=== PATIENT | female | born 1985 | race Caucasian/White ===

== ENCOUNTER 2018-01-25 17:13 | Inpatient (IN) | payer BC ==
[2018-01-25] MEDS ORDERED: Terbutaline 1 MG/ML SDV SUBCUT PRN (17:26)
[2018-01-25] MEDS ORDERED: Carboprost Tromethamine 250 MCG/1 ML Amp IM PRN (17:29)
[2018-01-25] MEDS ORDERED: Methylergonovine 0.2 MG/1 ML Amp IM PRN (17:29)
[2018-01-25] MEDS ORDERED: Sodium Chloride 0.9% 10 ML Syringe FLUSH PRN (17:29)
[2018-01-25] MEDS ORDERED: Water For Irrigation,Sterile 1,000 ML Container IRR PRN (17:29)
[2018-01-25] MEDS ORDERED: Lidocaine 1% 50 ML MDV INJECT PRN (17:29)
[2018-01-25] MEDS ORDERED: Misoprostol 200 MCG Tab PO PRN (17:29)
[2018-01-25] MEDS ORDERED: Tranexamic Acid 1,000 MG in Sodium Chloride 0.9% 100 ML IV PRN (17:29)
[2018-01-25] MEDS ORDERED: Sodium Chloride 0.9% 2.5 ML Syringe FLUSH PRN (17:29)
[2018-01-25] MEDS ORDERED: Oxytocin/0.9 % Sodium Chloride 30 UNIT/500 ML BAG IV SCH ×2 (17:30)
[2018-01-25] MEDS: Lactated Ringers 1,000 ML IV SCH (17:45)
[2018-01-25] MEDS ORDERED: Misoprostol 25 MCG (1/4 of 100 MCG) Tab VAG SCH (18:00)
[2018-01-26] MEDS ORDERED: Misoprostol 25 MCG (1/4 of 100 MCG) Tab VAG PRN
[2018-01-26] MEDS: Butorphanol 1 MG/ML SDV IVPUSH PRN ×2 (03:58→06:05)
[2018-01-26] MEDS: Lactated Ringers 1,000 ML IV SCH (05:30)
[2018-01-26] MEDS ORDERED: Acetaminophen 500 MG Tab ONE (13:47)
[2018-01-26] MEDS ORDERED: Ibuprofen 800 MG Tab ONE (13:48)
[2018-01-26] MEDS ORDERED: oxyCODONE 5 MG Tab PO PRN (14:19)
[2018-01-26] MEDS ORDERED: Aluminum Hydroxide/Magnesium Hydroxide/Simethicone Susp 30 ML Cup PO PRN (14:19)
[2018-01-26] MEDS ORDERED: Witch Hazel Medicated Pads 40/Jar TOP PRN (14:19)
[2018-01-26] MEDS ORDERED: Acetaminophen 500 MG Tab PO PRN ×2 (14:19)
[2018-01-26] MEDS ORDERED: Ibuprofen 800 MG Tab PO PRN (14:19)
[2018-01-26] MEDS ORDERED: Ibuprofen 400 MG Tab PO PRN (14:19)
[2018-01-26] MEDS ORDERED: Bisacodyl 10 MG Supp RECTAL PRN (14:19)
[2018-01-26] MEDS ORDERED: Benzocaine/Menthol 20%-0.5% Spray 78 GM Cannister TOP PRN (14:19)
[2018-01-26] MEDS ORDERED: Docusate Sodium 100 MG Cap PO PRN (14:19)
[2018-01-26] MEDS ORDERED: Lanolin 100% Cream 7 GM Tube TOP PRN (14:19)
[2018-01-26] MEDS ORDERED: Ondansetron 4 MG/2 ML SDV IVPUSH PRN (14:19)
[2018-01-27 08:15] VITALS: BP 118/65
--- NOTE | 2018-01-27 09:13 | PCM.PNPP ---
- General Info Date of Service: 01/27/18 Subjective Update: Patient is doing well, ambulating/voiding/lochia is minimal. She is tolerating regular diet. Denies headache or visual changes. is going well. - General Info Date of Service: 01/27/18 - Patient Data Vital Signs - Most Recent: Last Vital Signs Temp 36.5 C 01/27/18 08:00 Pulse 72 01/27/18 08:00 Resp 16 01/27/18 08:00 BP 118/65 01/27/18 08:00 Pulse Ox 97 01/27/18 08:00 Weight - Most Recent: 81.647 kg Lab Results - Last 24 Hours: Laboratory Results - last 24 hr 01/26/18 01/27/18 Range/Units 14:19 04:59 Hgb 11.9 L (12.0-16.0) g/dL Hct 34.3 L (36.0-46.0) % Cord ABG pH 7.103 L (7.18-7.38) Cord ABG Base Excess -11 L (-10--2) Cord VBG pH 7.195 L (7.25-7.45) Cord VBG Base Excess -10 (-10--2) Med Orders - Current: Current Medications Acetaminophen (Tylenol Extra Strength) 500 mg PO Q4H PRN PRN Reason: Pain Acetaminophen (Tylenol Extra Strength) 1,000 mg PO Q4H PRN PRN Reason: Pain Al Hydroxide/Mg Hydroxide (Mag-Al Plus) 30 ml PO Q8H PRN PRN Reason: Heartburn Benzocaine/Menthol (Dermoplast Pain Relief 20%-0.5% Penn) 78 gm TOP ASDIRECTED PRN PRN Reason: Perineal Comfort Measure Bisacodyl (Dulcolax) 10 mg RECTAL .ONCE PRN PRN Reason: Constipation Butorphanol Tartrate (Stadol) 1 mg IVPUSH Q1H PRN PRN Reason: Pain Last Admin: 01/26/18 06:05 Dose: 1 mg Carboprost Tromethamine (Hemabate Ds) 250 mcg IM ASDIRECTED PRN PRN Reason: Post Hemorrhage Docusate Sodium (Colace) 100 mg PO BID PRN PRN Reason: Constipation Emollient Ointment (Lansinoh Hpa) 0 gm TOP ASDIRECTED PRN PRN Reason: Sore Nipples Tranexamic Acid 1,000 mg/ (Sodium Chloride) 110 mls @ 600 mls/hr IV ONETIME PRN PRN Reason: Bleeding Oxytocin/Sodium Chloride (Oxytocin 30 Unit/500 Ml-Ns) 30 unit in 500 mls @ 2 mls/hr IV TITRATE RAVEN; 2 MUNITS/MIN PRN Reason: Protocol Lactated Ringer's (Ringers, Lactated) 1,000 mls @ 150 mls/hr IV ASDIRECTED RAVEN Last Admin: 01/26/18 05:30 Dose: 150 mls/hr Oxytocin/Sodium Chloride (Oxytocin 30 Unit/500 Ml-Ns) 30 unit in 500 mls @ 500 mls/hr IV TITRATE RAVEN Last Admin: 01/26/18 13:29 Dose: 500 mls/hr Ibuprofen (Motrin) 400 mg PO Q4H PRN PRN Reason: Pain Ibuprofen (Motrin) 800 mg PO Q6H PRN PRN Reason: Pain Last Admin: 01/26/18 21:02 Dose: 800 mg Methylergonovine Maleate (Methergine) 0.2 mg IM ASDIRECTED PRN PRN Reason: Post Hemorrhage Misoprostol (Cytotec) 200 mcg PO .ONCE PRN PRN Reason: Post Hemorrhage Ondansetron HCl (Zofran) 4 mg IVPUSH Q6H PRN PRN Reason: Nausea/Vomiting Oxycodone HCl (Oxycodone) 5 mg PO Q2H PRN PRN Reason: Pain Sodium Chloride (Saline Flush) 10 ml FLUSH ASDIRECTED PRN PRN Reason: Keep Vein Open Sodium Chloride (Saline Flush) 2.5 ml FLUSH ASDIRECTED PRN PRN Reason: Keep Vein Open Sterile Water (Sterile Water For Irrigation) 1,000 ml IRR ASDIRECTED PRN PRN Reason: delivery Last Admin: 01/26/18 14:48 Dose: 1,000 ml Witch Tere (Tucks) 1 pad TOP ASDIRECTED PRN PRN Reason: comfort care Discontinued Medications Acetaminophen (Tylenol Extra Strength) Confirm Administered Dose 1,000 mg .ROUTE .STK-MED ONE Stop: 01/26/18 13:48 Last Admin: 01/26/18 14:07 Dose: 1,000 mg Ibuprofen (Motrin) Confirm Administered Dose 800 mg .ROUTE .STK-MED ONE Stop: 01/26/18 13:49 Last Admin: 01/26/18 14:05 Dose: 800 mg Lidocaine HCl (Xylocaine 1%) 50 ml INJECT .ONCE PRN PRN Reason: Laceration repair Last Admin: 01/26/18 13:25 Dose: 50 ml Misoprostol (Cytotec) 25 mcg VAG .ONCE RAVEN Last Admin: 01/25/18 18:25 Dose: 25 mcg Misoprostol (Cytotec) 25 mcg VAG Q4H PRN PRN Reason: Cervical Ripening Terbutaline Sulfate (Brethine) 0.25 mg SUBCUT ASDIRECTED PRN PRN Reason: Tacysystole - Interaction Support Person: - Recovery Exam Fundal Tone: Firm Fundal Level: At Umbilicus Fundal Placement: Midline Lochia Amount: Scant Lochia Color: Rubra/Red Perineum Description: Intact, Minimal Bruising/Swelling Bladder Status: Voiding Urinary Elimination: Voided - Exam General: Alert, Oriented Lungs: Normal Respiratory Effort Cardiovascular: Regular Rate, Regular Rhythm GI/Abdominal Exam: Normal Bowel Sounds, Soft Extremities: Pedal Edema (trace). No: Rufino's Sign Skin: Warm, Dry, Intact Psy/Mental Status: Alert, Normal Affect - Problem List & Annotations (1) Vaginal delivery SNOMED Code(s): 392447338 Code(s): O80 - ENCOUNTER FOR FULL-TERM UNCOMPLICATED DELIVERY Status: Acute Current Visit: No - Problem List Review Problem List Initiated/Reviewed/Updated: Yes - My Orders Last 24 Hours: My Active Orders 01/26/18 14:19 Patient Status [ADT] Routine May Shower [RC] ASDIRECTED Up ad [place] [RC] ASDIRECTED Vital Signs [RC] PER UNIT ROUTINE Acetaminophen [Tylenol Extra Strength] 1,000 mg PO Q4H PRN Acetaminophen [Tylenol Extra Strength] 500 mg PO Q4H PRN Alum Hydrox/Mag Hydrox/Simeth [Mag-Al Plus] 30 ml PO Q8H PRN Benzocaine/Menthol [Dermoplast Pain Relief 20%-0.5% Penn] 78 gm TOP ASDIRECTED PRN Bisacodyl [Dulcolax] 10 mg RECTAL .ONCE PRN Docusate Sodium [Colace] 100 mg PO BID PRN Ibuprofen [Motrin] 400 mg PO Q4H PRN Ibuprofen [Motrin] 800 mg PO Q6H PRN Lanolin [Lansinoh HPA] See Dose Instructions TOP ASDIRECTED PRN Ondansetron [Zofran] 4 mg IVPUSH Q6H PRN Witch Tere [Tucks] 1 pad TOP ASDIRECTED PRN oxyCODONE 5 mg PO Q2H PRN Assess Lochia [WOMSER] Per Unit Routine Assess Uterine Involution [WOMSER] Per Unit Routine Ice Therapy [OM.PC] Per Unit Routine Perineal Care [OM.PC] Per Unit Routine Peripheral IV Discontinue [OM.PC] Routine Sitz Bath [OM.PC] Per Unit Routine 01/26/18 Lunch Regular Diet [DIET] 01/27/18 09:09 Ready for Discharge [RC] PER UNIT ROUTINE - Assessment Assessment:: PPD 1 status post gestational hypertension--remains normotensive - Plan Plan:: Patient allowed to be discharged to home today. Discharge instructions reviewed. Infection and bleeding warnings reviewed. Follow up at [facility] 6 weeks unless BPs at home >140/90, patient will call if this occurs.
--- NOTE | 2018-01-27 11:26 | OR ---
SURGEON: Cintia Hodge M.D. DATE OF PROCEDURE: 01/26/2018 PREOPERATIVE DIAGNOSES: 1. 39 and 6-week intrauterine . 2. Gestational hypertension. POSTOPERATIVE DIAGNOSES: 1. 39 and 6-week intrauterine . 2. Gestational hypertension. PROCEDURE: Spontaneous vaginal delivery, intact perineum. ANESTHESIA: Local. ESTIMATED BLOOD LOSS: 300 mL. COMPLICATIONS: None. FINDINGS: Term male. Score 5 at 1 minute, 8 at 5 minutes. Weight 3560 g. Spontaneous delivery. Intact placenta. Three-vessel cord. DISPOSITION: to nursery, mom in LDRP. PROCEDURE IN DETAIL: The patient is a 32-year-old G2, P1-0-0-1, at 39 and 6 weeks' gestational age. She presented on the evening of 01/25/2018 for scheduled induction of labor due to gestational hypertension and term gestation. Upon arrival, a urinalysis was performed, no protein in the urine. Blood pressures are ranging in the 120s to 130s over 70s to 80s range. The patient denies any headaches, visual changes, or mid epigastric pain. She was admitted and was initiated on Cytotec in ripening due to cervix being 1 cm, 50% effaced, -3 station. The patient responded very nicely to the Cytotec and began missael regularly and contracted throughout the evening hours. She progressed on a single dose of Cytotec and was found to be 8 cm shortly before 8:00 a.m. progressing to 9.5 cm shortly before 9:00 a.m., but thereafter made minimal cervical change. On my evaluation approximately noon, there was a small forebag that was ruptured. Clear fluid was returned. There was an anterior lip being present. With pushing efforts, was able to push past the anterior lip and continued with pushing efforts. The patient continued with pushing efforts over the next approximately an hour and was able to push to a +3 station. I was in the room for delivery. The patient was placed in modified dorsal lithotomy position and was prepped and draped in the usual aseptic manner. Continued with pushing efforts, was able to push to a +4 station. Having some difficulty pushing past this station. I did infiltrate the perineum with 1% lidocaine. I encouraged the patient to continue with pushing efforts and I was able to deliver infant's head followed by anterior shoulder, posterior shoulder, and remainder of the body without difficulty. Infant's oropharynx and nares were bulb suctioned. Cord was clamped x2 and cut. was handed off to attending nursing staff for a brief resuscitation. Cord arterial, cord venous, cord blood samplings were obtained. Light suprapubic pressure was applied while the placenta was delivered spontaneously intact. Vigorous fundal uterine massage was then applied while 30 units of Pitocin was delivered in 500 mL of IV fluid. Upon inspection of cervix, vaginal sidewalls, and perineum, there was found to be intact perineum. Uterus remained firm. Hemostasis remained evident. Sponge count is correct. The patient remained in LDRP and infant in nursery. FLORIAN / RJ /[id number]
== END 2018-01-27 18:25 | disposition home or self-care (01) | DRG 560 ==
LOC: MW.OBCHECK 17:13 → MW.OB 17:24 → OBSVTOIN 01-26 13:29
PROVIDERS: ADMIT Obstetrics & Gynecology; ATTEND Obstetrics & Gynecology
PROC: 10E0XZZ Delivery of Products of Conception, External Approach (ICD-10-PCS; principal; 2018-01-26)
PROC: 3E0P7VZ Introduction of Hormone into Female Reproductive, Via Natural or Artificial Opening (ICD-10-PCS; 2018-01-26)
PROC: 10907ZC Drainage of Amniotic Fluid, Therapeutic from Products of Conception, Via Natural or Artificial Opening (ICD-10-PCS; 2018-01-26)
DX: O13.4 Gestational [pregnancy-induced] hypertension without significant proteinuria, complicating childbirth (principal); Z3A.39 39 weeks gestation of pregnancy; Z37.0 Single live birth
CPT/HCPCS: 36415; 59025; 59409; 81003; 82803; 84112; 85014; 85018; 85027; 86850; 86900; 86901; A9270-GY; J0595; J2590; J7120